=== PATIENT | female | born 1960 | race Caucasian/White ===

== ENCOUNTER 2017-08-24 16:41 | Outpatient (CLI) ==
[2017-08-24 16:47] LABS: FLU INTERNAL QC INTERNAL QC VALID; RAPID FLU A NEGATIVE (NEGATIVE); RAPID FLU B NEGATIVE (NEGATIVE)
== END 2017-08-24 16:42 | disposition home or self-care (01) ==
LOC: LAB 16:41
PROVIDERS: ATTEND Nurse Practitioner Family
DX: J02.9 Acute pharyngitis, unspecified (principal); R68.89 Other general symptoms and signs
CPT/HCPCS: 87651; 87804; 87880

== ENCOUNTER 2017-11-09 11:45 | Outpatient (CLI) | payer OTHER ==
--- NOTE | 2017-11-09 12:38 | DI ---
In: Five x-rays of the lumbar spine. Comparison: None available. Reason for exam: Low back pain. FINDINGS: No acute fracture. The vertebral body heights are well maintained. There is multilevel d egenerative disease with intervertebral body disc space height loss and osteophyte formation with fac et hypertrophy. There is straightening of the lumbar lordotic curve. Atherosclerotic disease is see n within the aorta. Impression: 1. No acute fracture or listhesis in the lumbar spine. 2. Multilevel degenerative disease with intervertebral body disc space height loss and osteophyte fo rmation.
== END 2017-11-09 11:46 | disposition home or self-care (01) ==
LOC: RAD 11:45
PROVIDERS: ATTEND General Practice
DX: R05 Cough (principal); M54.5 Low back pain
CPT/HCPCS: 36415; 85025; 87502

== ENCOUNTER 2017-11-26 13:06 | Outpatient (CLI) ==
--- NOTE | 2017-11-26 14:04 | US ---
EXAM: ULTRASOUND CAROTID DUPLEX, BILATERAL HISTORY: Numbness, visual impairment and headaches FINDINGS: Hammer-scale ultrasound, color Doppler and spectral analysis was performed. Velocities are in meters per second. By hammer scale and color Doppler imaging, there were regions of heterogeneous plaque formation identif ied within the carotid bulbs and internal carotid arteries. These regions of plaque appeared to lisandro in easily less than 50% vessel diameter. RIGHT: External carotid artery peak systolic velocity: 121 Common carotid artery peak systolic velocity/end diastolic velocity: 0.9/0.2 Internal carotid artery peak systolic velocity: 1.0 ICA/CCA peak systolic velocity ratio: 1.2 ICA end diastolic velocity: 0.4 LEFT: External carotid artery peak systolic velocity: 1.3 Common carotid artery peak systolic velocity/end diastolic velocity: 0.8/0.2 Internal carotid artery peak systolic velocity: 1.1 ICA/CCA peak systolic velocity ratio: 1.4 ICA end diastolic velocity: 0.3 The right and left vertebral arteries were antegradenew. IMPRESSION: 1. By hammer scale and color Doppler imaging, there were regions of heterogeneous plaque formation nando ntified within the carotid bulbs and internal carotid arteries. These regions of plaque appeared to remain easily less than 50% vessel diameter. 2. Internal carotid artery peak systolic velocities and ICA/CCA peak systolic velocity ratios indica te no hemodynamically significant stenosis bilaterally. 3. Both vertebral arteries were antegrade.
== END 2017-11-26 13:07 | disposition home or self-care (01) ==
LOC: RAD 13:06
PROVIDERS: ATTEND General Practice
DX: R09.89 Other specified symptoms and signs involving the circulatory and respiratory systems (principal)

== ENCOUNTER 2018-02-01 06:24 | Outpatient (CLI) | END 2018-02-01 06:25 | disposition home or self-care (01) | LOC: LAB 06:24 | PROVIDERS: ATTEND General Practice | DX: Z79.899 Other long term (current) drug therapy (principal) | CPT/HCPCS: 36415; 80076 ==

== ENCOUNTER 2018-02-03 09:34 | Outpatient (CLI) | END 2018-02-03 09:35 | disposition home or self-care (01) | LOC: FCC-LAB 09:34 | PROVIDERS: ATTEND General Practice | DX: R05 Cough (principal); I73.9 Peripheral vascular disease, unspecified; I34.1 Nonrheumatic mitral (valve) prolapse; Z79.899 Other long term (current) drug therapy | CPT/HCPCS: 36415; 80053; 80061; 81001; 85025 ==

== ENCOUNTER 2018-11-24 14:59 | Emergency (ER) ==
[2018-11-24 15:00] VITALS: BMI 28.3
[2018-11-24 15:10] VITALS: BP 133/74; TEMP 101
--- NOTE | 2018-11-24 15:33 | DI ---
EXAM: Two views of the chest. History: Cough. Comparison: Chest radiograph 08/28/2018 Findings: Heart size is normal. No focal consolidation. No appreciable pleural fluid and no pneumo thorax. No acute osseous abnormalities. Calcified granulomas again seen within the thorax. Impression: No acute cardiopulmonary process. Old granulomatous disease. No change compared to the prior study
--- NOTE | 2018-11-24 16:35 | ED.PDOC ---
General ED Provider: Dr. EDUARDO OVALLE Chief Complaint: Fever Stated Complaint: flu like symptoms Time Seen by Physician: 15:00 Mode of Arrival: Walk-In Information Source: Patient Exam Limitations: No limitations [facility] Nursing and Triage Documentation Reviewed and Agree: Yes Does patient meet sepsis criteria?: No System Inflammatory Response Syndrome: Not Applicable Sepsis Protocol: For patient's 13 years and over: Temp is 96.8 and below OR 101 and greater Pulse >90 BPM Resp >20/minute Acutely Altered Mental Status Are patient's symptoms suggestive of a new infection, such as: -Pneumonia -Skin, Soft Tissue -Endocarditis -UTI -Bone, Joint Infection -Implantable Device -Acute Abdominal Infection -Wound Infection -Meningitis -Blood Stream Catheter Infection -Unknown EENT Complaint Exam - Throat Complaint/Exam Symptoms Are: Still present Timimg: Intermittent Initial Severity: Mild Current Severity: Mild Aggravating: Reports: None Alleviating: Reports: None Associated Signs and Symptoms: Reports: Cough, Nasal congestion. Denies: Fever , Dysphagia, Drooling, Foreign body sensation, Chills, Wheezing, Hoarseness, Sinus discomfort, Difficulty breathing, Lethargy, Irritability, Decreased activity, Vomiting, Diarrhea, Decreased hearing, Ear drainage Uvula Midline: Yes Daphne-tonsillar Fluctuence: No Scarlatinaform Rash Present: No Lesions: Absent: Lip, Gums, Tongue, Buccal Mucosa, Pharynx Exanthem: Absent: Lip, Gums, Tongue, Buccal Mucosa, Pharynx Stridor Present: No Sinus Tenderness Present: No Tonsillar Hypertrophy Present: No Tonsillar Exudate Present: No Daphne-tonsillar Swelling Present: No Adenopathy Present: No Splenomegaly Present: No Differential Diagnoses: Pharyngitis Review of Systems - Review Of Systems Constitutional: Reports: Chills Eyes: Reports: No symptoms Ears, Nose, Mouth, Throat: Reports: No symptoms Respiratory: Reports: No symptoms Cardiac: Reports: No symptoms GI: Reports: No symptoms : Reports: No symptoms Musculoskeletal: Reports: No symptoms Skin: Reports: No symptoms Neurological: Reports: No symptoms Endocrine: Reports: No symptoms Hematologic/Lymphatic: Reports: No symptoms All Other Systems: Reviewed and Negative Past Medical History - Past Medical History Previously Healthy: Yes Endocrine: Reports: None Cardiovascular: Reports: Other (mitral valve prolapse ) Respiratory: Reports: None Hematological: Reports: None Gastrointestinal: Reports: None Genitourinary: Reports: None Neuro/Psych: Reports: None Musculoskeletal: Reports: None Cancer: Reports: None Last Menstrual Period: 10 + years - Surgical History General Surgical History: Reports: None - Family History Family History: Reports: None - Social History Smoking Status: Current every day smoker, Light tobacco smoker Hx Substance Use: No Alcohol Screening: None Physical Exam - Physical Exam Appearance: Well-appearing, No pain distress, Well-nourished Eyes: BENNETT, EOMI, Conjunctiva clear ENT: Ears normal, Nose normal, Oropharynx normal Respiratory: Airway patent, Breath sounds clear, Breath sounds equal, Respirations nonlabored Cardiovascular: RRR, Pulses normal, No rub, No murmur GI/: Soft, Nontender, No masses, Bowel sounds normal, No Organomegaly Musculoskeletal: Normal strength, ROM intact, No edema, No calf tenderness Skin: Warm, Dry, Normal color Neurological: Sensation intact, Motor intact, Reflexes intact, Cranial nerves intact, Alert, Oriented Psychiatric: Affect appropriate, Mood appropriate Critical Care Note - Critical Care Note Total Time (mins): 0 Course - Course Hematology/Chemistry: 11/24/18 15:30 11/24/18 15:30 Orders, Labs, Meds: Lab Review 11/24/18 11/24/18 11/24/18 15:15 15:30 15:30 WBC 6.82 RBC 4.46 Hgb 13.2 Hct 40.2 MCV 90.1 MCH 29.6 MCHC 32.8 RDW Coeff of Jennifer 13.7 Plt Count 150 Immature Gran % (Auto) 0.3 Neut % (Auto) 83.7 Lymph % (Auto) 6.7 L Hays % (Auto) 9.1 Eos % (Auto) 0.1 Baso % (Auto) 0.1 Immature Gran # (Auto) 0.0 Neut # (Auto) 5.7 Lymph # (Auto) 0.5 L Hays # (Auto) 0.6 Eos # (Auto) 0.0 Baso # (Auto) 0.0 Sodium 138.9 Potassium 4.06 Chloride 98.9 Carbon Dioxide 31.0 H Anion Gap 13.06 BUN 10.7 Creatinine 0.67 Estimated GFR (MDRD) 90.00 BUN/Creatinine Ratio 15.97 Glucose 130.0 H Calcium 9.20 Total Bilirubin 0.34 AST 22.0 ALT 17.6 Alkaline Phosphatase 69.0 Total Protein 7.65 Albumin 4.42 Globulin 3.23 Albumin/Globulin Ratio 1.36 Influ A Molecular Assay Positive by naat H Influ B Molecular Assay Negative by naat Orders Category Date Time Status CBC W/ AUTO DIFF Stat LAB 11/24/18 15:30 Completed COMPREHENSIVE METABOLIC PANEL Stat LAB 11/24/18 15:30 Completed FLU A/B MOLECULAR Stat LAB 11/24/18 15:15 Completed MOLECULAR GROUP A STREP Stat LAB 11/24/18 15:15 Completed CHEST, 2 VIEWS PA & LAT Stat RADS 11/24/18 15:15 Completed Vital Signs: Temp Pulse Resp BP Pulse Ox 11/24/18 15:00 101 F H 93 H 20 133/74 93 L Departure - Departure Time of Disposition: 16:34 Disposition: HOME SELF-CARE Discharge Problem: Fever, Viral syndrome, Influenza A Instructions: Influenza (ED) Condition: Good Pt referred to PMD for follow-up: Yes IPMP verified?: No Allergies/Adverse Reactions: Allergies aspirin Allergy (Verified 08/28/18 12:56) Nausea GI upsets steroids Allergy (Severe, Uncoded 08/28/18 12:56) Palpitations slows heart rate. Has Mitral valve prolapse. Home Medications: Ambulatory Orders Ascorbic Acid [Vitamin C] 500 mg PO DAILY #30 tab-cap 06/26/15 Cyanocobalamin (Vitamin B-12) [Vitamin B-12] 2,500 mcg SL DAILY #30 tab-cap Mesalamine [Pentasa] 500 mg PO 2 TABS 3 TIMES DAILY tab-cap 12/13/15 Omeprazole 20 mg PO BID PRN #60 tab-cap 04/12/18 Albuterol Sulfate [Proair Hfa] 2 puff IH Q6H PRN #1 puff 08/28/18
== END 2018-11-24 16:40 | disposition home or self-care (01) ==
LOC: ED 14:59
DX: J11.1 Influenza due to unidentified influenza virus with other respiratory manifestations (principal); B34.9 Viral infection, unspecified; F17.210 Nicotine dependence, cigarettes, uncomplicated
CPT/HCPCS: 36415; 80053; 85025; 87502; 87651; 99283

== ENCOUNTER 2018-12-01 16:53 | Outpatient (CLI) ==
--- NOTE | 2018-12-02 07:24 | DI ---
EXAM: PA and lateral views of the chest HISTORY: Cough. COMPARISON: Chest x-ray 11/24/2018 and multiple priors FINDINGS: The cardiomediastinal silhouette is normal. There is no pneumothorax or pleural effusion. Calcified granulomas are present. There is no consolidation, nodule or mass. The osseous structur es are stable. IMPRESSION: No acute cardiopulmonary process
== END 2018-12-01 16:54 | disposition home or self-care (01) ==
LOC: RAD 16:53
PROVIDERS: ATTEND General Practice
DX: R05 Cough (principal)